=== PATIENT | female | born 1955 | race Caucasian/White ===

== ENCOUNTER → 2021-08-27 11:43 | Outpatient (CLI) | payer OTHER, SELFPAY ==
--- NOTE | 2021-08-27 11:46 | DI.MG.S_ITS ---
BILATERAL DIGITAL DIAGNOSTIC MAMMOGRAM 3D/2D: 08/27/2021 CLINICAL: Right breast lump. baseline. No prior exams were available for comparison. The tissue of both breasts is predominantly fatty. No significant masses, calcifications, or other findings are seen in either breast. IMPRESSION: INCOMPLETE: NEEDS ADDITIONAL IMAGING EVALUATION No abnormality demonstrated. Targeted ultrasound of the reportedly palpable finding in the right retroareolar region will be performed. This exam was interpreted at Station ID: [id number]. NOTE: For mammograms, a report in lay terms will be sent to the patient. Approximately 15% of breast malignancies will not be visualized mammographically. In the management of a palpable breast mass, a negative mammogram must not discourage biopsy of a clinically suspicious lesion. Electronically Signed By: Niall Ortiz M.D. jr/:08/27/2021 14:15:35 ACR BI-RADS Category 0: Incomplete [id number]
== END ==
PROVIDERS: Family Provider Nurse Practitioner; PCP Nurse Practitioner Family; Referring Provider Nurse Practitioner; Visit Provider Nurse Practitioner
DX: N63.10 Unspecified lump in the right breast, unspecified quadrant (principal)
CPT/HCPCS: 77066; G0279

== ENCOUNTER → 2024-06-06 13:37 | Outpatient (CLI) | payer MEDICARE, SELFPAY ==
--- NOTE | 2024-06-06 13:42 | DI.ECHO.S_ITS ---
[facility] : : [id number] : [place] : : [id number] : : Phone: [phone] Echocardiogram Report + + :Name: SHANICE DOUGLASS Study Date: 06/06/2024 Height: 64 in : :[facility] ReadingLocation: Weight: 255 lb : : Gender: Female BSA: 2.2 m2 : :: 1955 Age: 68 yrs BP: 169/106 mmHg: :Reason For Study: PITTING EDEMA : :Ordering Physician: JERRY, : :MERVAT Performed By: Rama Wallace : :Referring: MERVAT EDWARDS : + + Interpretation Summary The left ventricle is normal in size. The left ventricular ejection fraction is normal. The ejection fraction is estimated to be 60-65%. The right ventricle is normal in size and function. There is mild to moderate aortic regurgitation. The ascending aorta is mild-moderately enlarged. 4.5 cm in diameter. The aortic arch is mild-moderately enlarged. 4.2 cm in diameter.BSA: 2.2 m2 BP: 169/106 mmHg Procedure: A two-dimensional transthoracic echocardiogram with color flow and Doppler was performed. The study quality was technically adequate. The subcostal views were difficult to obtain and are suboptimal in quality. There is no prior echocardiogram noted for this patient. The patient was in sinus rhythm with heart rates between 60-65 bpm during the exam. Left Ventricle: The left ventricle is normal in size. Proximal septal thickening is noted. There is no thrombus. The ejection fraction is estimated to be 60-65%. The left ventricular ejection fraction is normal. There are no focal wall motion abnormalities. Diastolic parameters suggest a relaxation abnormality of the left ventricle, consistent with probable normal filling pressures. Right Ventricle: The right ventricle is normal in size and function. Atria: The left atrium is borderline dilated. Right atrial size is normal. There is no Doppler evidence for an interatrial shunt. Mitral Valve: The mitral valve leaflets appear to open well. There is no mitral annular calcification. There is trace mitral regurgitation. Aortic Valve: The aortic valve is trileaflet. The aortic valve is slightly calcified. There is discrete nodular thickening of the non- coronary cusp. There is no aortic valve stenosis. There is mild to moderate aortic regurgitation. Tricuspid Valve: The tricuspid valve is not well visualized, but is grossly normal. There is trace tricuspid regurgitation. Pulmonary artery pressures cannot be estimated because of the lack of a measurable TR jet velocity. Pulmonic Valve: The pulmonic valve is not well visualized. There is no pulmonic valvular regurgitation. Great Vessels: The aortic root is normal size. The ascending aorta is mild- moderately enlarged. The aortic arch is mild-moderately enlarged. The inferior vena cava was not well visualized. Pericardium/ Pleura There is no pericardial effusion. There is no pleural effusion. MMode/2D Measurements & Calculations LVIDd: 4.4 cm LVOT diam: 2.1 cm LVIDs: 3.0 cm Ao root diam: 3.9 cm FS: 31.7 % asc Aorta Diam: 4.5 cm IVSd: 1.2 cm Ao Arch Diam (distal): 4.2 cm LVPWd: 0.92 cm LV rodriguez. diameter/BSA (cm/m^2): 2.0 LV sys. diameter/BSA (cm/m^2): 1.4 LA A2 area: 23.5 cm2 RA long axis: 5.0 cm LA A4 area: 18.8 cm2 RA area: 18.4 cm2 LA length (vol): 5.1 cm RA vol: 57.6 ml LA vol: 73.9 ml RA : 26.5 ml/m2 LA vol index: 34.1 ml/m2 RVD1 (basal): 4.0 cm RVD2 (mid): 3.5 cm TAPSE: 2.1 cm Doppler Measurements & Calculations Ao V2 max: 175.2 cm/sec LVOT Max Lionel: 102.2 cm/sec Ao V2 mean: 118.0 cm/sec LV V1 max P.2 mmHg Ao max P.3 mmHg LV V1 VTI: 21.1 cm Ao mean P.3 mmHg [place](I,D): 2.1 cm2 Ao V2 VTI: 35.5 cm [place](V,D): 2.0 cm2 sev ratio: 0.59 [place] indexed to BSA (cm^2/m^2): 0.96 AI P1/2t: 888.0 msec AI dec slope: 151.0 cm/sec2 MV E max lionel: 71.8 cm/sec PA V2 max: 94.6 cm/sec MV A max lionel: 79.4 cm/sec PA V2 mean: 71.5 cm/sec MV E/A: 0.90 PA mean P.2 mmHg Med Peak E' Lionel: 9.4 cm/sec PA pr(Accel): 32.8 mmHg E/E' med: 7.7 Lat Peak E' Lionel: 10.0 cm/sec E/E' lat: 7.2 E/e' average: 7.4 MV dec time: 0.20 sec SV(OT): 73.6 ml Reading Physician:[id number] PM
--- NOTE | 2024-06-06 13:42 | DI.NM.S_ITS ---
PROCEDURE: NM EXERCISE TREADMILL NON NUC COMPARISON: None. INDICATIONS: PITTING EDEMA/SHEETS FINDINGS: Rest ECG sinus rhythm, 67 bpm. Dhruv protocol 2:05, maximum heart rate 140 bpm (92% peak predicted), peak blood pressure 200/102, 4.6 METS, BETO 62%. Exercise ECG sinus tachycardia no ST segment changes or arrhythmias. Rare PVCs noted in recovery. The patient demonstrated significant shortness of breath with exertion. SpO2 at rest 96%, with exertion 90%. No reports of exercise-induced chest discomfort. IMPRESSION: Intermediate risk study. No evidence of exercise-induced ECG changes however this is in the setting of markedly reduced exercise capacity, accelerated heart rate response, hypertensive response and exertional hypoxemia. Dictated by: Tracie Milton D.O. on 06/06/2024 at 16:51 Approved by: Tracie Milton D.O. on 06/06/2024 at 16:56
== END ==
LOC: ECHO 13:41
PROVIDERS: Family Provider Nurse Practitioner; PCP Nurse Practitioner Family; Referring Provider Internal Medicine Cardiovascular Disease; Visit Provider Internal Medicine Cardiovascular Disease
DX: I35.1 Nonrheumatic aortic (valve) insufficiency (principal); I77.89 Other specified disorders of arteries and arterioles; R06.09 Other forms of dyspnea; R60.9 Edema, unspecified; I70.0 Atherosclerosis of aorta
CPT/HCPCS: 93017; 93306